=== PATIENT | male | born 1990 | race Caucasian/White ===

== ENCOUNTER 2020-03-11 09:55 | Emergency (ER) | payer SELFPAY ==
[~2020-03-11] VITALS: Ht 172.7 cm; Wt 68.7 kg
--- NOTE | 2020-03-11 10:20 | PHYS DOC ---
Past History Past Medical History: No Pertinent History Past Surgical History: No Surgical History Alcohol Use: Rarely Adult General Chief Complaint Chief Complaint: SEXUALLY TRANSMITTED DISEASE HPI HPI Patient is a 29-year-old male who presents for urinary complaints. Reports this has been ongoing for past 24 hours. Nothing known makes better or worse. Patient reports generalized pubic discomfort and feelings that he does not completely empty his entire bladder every time he pees. Denies any penile pain, exudate or discharge. Admits known history of HPV. Has x1 partner, his significant other, who he admits being faithful with. Significant other states that "we do not have an STD ". They do not know his condoms or other contraceptive methods. Patient has no recent fever, COVID-19 contact, chest pain, shortness of breath, testicular abnormalities, history, changes in bowel function, no incontinence Review of Systems Review of Systems Fourteen body systems of review of systems have been reviewed. See HPI for pertinent positives and negative responses, other ortega all other systems are negative, non-pertinent or non-contributory Allergies Allergies Allergies Coded Allergies Type Severity Reaction Last Updated Verified No Known Drug Allergies 03/11/20 No Physical Exam Physical Exam Constitutional: Well developed, well nourished, no acute distress, non-toxic appearance. HENT: Normocephalic, atraumatic, bilateral external ears normal, oropharynx moist, no oral exudates, nose normal. Eyes: PERRLA, EOMI, conjunctiva normal, no discharge. Neck: Normal range of motion, no tenderness, supple, no stridor. Cardiovascular: Heart rate regular, sinus rhythm, no murmurs rubs or gallops Lungs & Thorax: Bilateral breath sounds clear to auscultation Abdomen: Bowel sounds normal, soft, no tenderness, no masses, no pulsatile masses. Nonsurgical abdomen, no peritoneal signs. : External genitalia unremarkable, negative inguinal canal abnormalities to palpation, penis with known HPV lesions without other exudates or concerning findings, testes both descended, unremarkable to visual and palpable inspection Skin: Warm, dry, no erythema, no rash. Back: No tenderness, no CVA tenderness. Extremities: No tenderness, no cyanosis, no clubbing, ROM intact, no edema. Neurologic: Alert and oriented X 3, grossly normal motor & sensory function, no focal deficits noted. Psychologic: Anxious affect and mood Current Patient Data Vital Signs Vital Signs Date Time Temp Pulse Resp B/P (MAP) Pulse Ox O2 Delivery O2 Flow Rate FiO2 03/11/20 10:05 97.7 84 20 128/86 (100) 99 Lab Results Laboratory Tests Test 03/11/20 10:20 Urine Collection Type Unknown Urine Color Yellow Urine Clarity Clear Urine pH 5.0 Urine Specific [place] 1.010 Urine Protein Neg Urine Glucose (UA) Neg mg/dL Urine Ketones (Stick) Neg mg/dL Urine Blood Neg Urine Nitrite Neg Urine Bilirubin Neg Urine Urobilinogen Dipstick 0.2 mg/dL Urine Leukocyte Esterase Neg Urine RBC 0 /HPF Urine WBC Rare /HPF Urine Squamous Epithelial Cells Occ /LPF Urine Bacteria 0 /HPF EKG EKG [] Radiology/Procedures Radiology/Procedures [] Heart Score HEART Score for Chest Pain: HEART Score for Chest Pain Response (Comments) Value History Slighlty/Non-Suspicious 0 Age < 45 0 Risk Factors No Risk Factors 0 Total 0 Risk Factors: Risk Factors: DM, Current or recent (<one month) smoker, HTN, HLP, family history of CAD, obesity. Risk Scores: Risk Factors: DM, Current or recent (<one month) smoker, HTN, HLP, family history of CAD, obesity. Course & Med Decision Making Course & Med Decision Making Pertinent Labs and Imaging studies reviewed. (See chart for details) No UTI. Gonorrhea and Chlamydia results pending. Discussed options of treatment today versus waiting and receiving results with treatment pending, patient opted for prophylactic STD treatment given symptoms Patient does not have PCP. I gave him resources and advised him to follow-up on today's ER visit. I discussed there might be indication for outpatient urology visit if symptoms still persist after treatment Appropriate recommendations status post STD treatment given. Strict return precautions with discussed with good understanding prior to ER departure Dragon Disclaimer Dragon Disclaimer This electronic medical record was generated, in whole or in part, using a voice recognition dictation system. Departure Departure: Impression: Primary Impression: Urinary problem in male Disposition: 01 DC HOME SELF CARE/HOMELESS Condition: GOOD Referrals: PCP,NO (PCP) Additional Instructions: You were seen for urinary problems. You were tested for the most common STDs. It is not clear when/where you became infected and many people can be asymptomatic. You should avoid sex for the next week and use condoms in the future. Your test will come back in upcoming 24 to 48 hours, we will communicate results to you. If positive, you must have all your sexual partners tested, treated, and avoid sexual intercourse for 1 week after all parties have finished treatment. Strict adherence may still not prevent re-infection. Return to the ED if you develop any new or concerning symptoms. TIFFANY BLOUNT DO Mar 11, 2020 10:20
[2020-03-11 11:08] LABS: BILIRUBIN,URINE NEG (NEG); CLARITY,URINE CLEAR; COLOR,URINE YELLOW; GLUCOSE,URINE NEG (NEG); NITRITE,URINE NEG (NEG); RBC,URINE 0 /HPF (0-2); UROBILINOGEN,URINE 0.2 mg/dL (0.2 mg/dL); WBC,URINE RARE /HPF (0-4)
[2020-03-11 11:09] LABS: BACTERIA,URINE 0 /HPF (0-FEW); SQUAMOUS EPITHELIAL CELL,UR OCC /LPF
[2020-03-11] MEDS ORDERED: cefTRIAXone IM 250 MG VIAL IM ONE (11:30)
[2020-03-11] MEDS ORDERED: AZITHROMYCIN 250 MG TABLET. PO ONE (11:30)
[2020-03-11 11:58] VITALS: BP 139/87
== END 2020-03-11 12:00 | disposition home or self-care (01) ==
LOC: ER 09:55
DX: N48.89 Other specified disorders of penis (principal)
CPT/HCPCS: 81001; 87491; 87591; 96372; 99283; J0696; 36415